=== PATIENT | female | born 1990 | race Caucasian/White ===

== ENCOUNTER 2019-06-11 18:20 | Emergency (ER) | payer OTHER ==
[~2019-06-11] VITALS: Ht 165.1 cm; Wt 117.9 kg
[2019-06-11 18:34] VITALS: Ht 165.1 cm; Wt 117.9 kg
[2019-06-11 20:40] VITALS: BP 143/103
== END 2019-06-11 20:40 | disposition home or self-care (01) ==
LOC: ED 18:20
DX: S92.352A Displaced fracture of fifth metatarsal bone, left foot, initial encounter for closed fracture (principal); Z98.890 Other specified postprocedural states; X50.1XXA Overexertion from prolonged static or awkward postures, initial encounter; Y93.89 Activity, other specified; Y92.89 Other specified places as the place of occurrence of the external cause; Y99.8 Other external cause status

== ENCOUNTER 2020-06-18 12:31 | Emergency (ER) | payer OTHER ==
[~2020-06-18] VITALS: Ht 165.1 cm; Wt 129.7 kg
[2020-06-18 12:51] VITALS: Ht 165.1 cm; Wt 129.7 kg
[2020-06-18 14:10] VITALS: BP 138/87
== END 2020-06-18 14:10 | disposition home or self-care (01) ==
LOC: ED 12:31
DX: S61.211A Laceration without foreign body of left index finger without damage to nail, initial encounter (principal); Z98.890 Other specified postprocedural states; W26.0XXA Contact with knife, initial encounter; Y93.89 Activity, other specified; Y92.89 Other specified places as the place of occurrence of the external cause; Y99.8 Other external cause status
CPT/HCPCS: 90715; J2001